=== PATIENT | female | born 1980 | race Two or more races ===

== ENCOUNTER 2021-10-19 20:45 | Emergency (ER) | payer OTHER ==
[~2021-10-19] VITALS: Ht 170.2 cm; Wt 136.1 kg
[2021-10-19] MEDS ORDERED: [UNRECOGNIZED DRUG - OTHER] (21:13)
[2021-10-19] MEDS ORDERED: LEVSIN/SL0.125 MG SL (23:48)
[2021-10-19] MEDS ORDERED: PEPCID AC20 MG PO (23:48)
[2021-10-19] MEDS ORDERED: CARAFATE1 GM PO (23:48)
== END 2021-10-20 00:14 | disposition home or self-care (01) ==
LOC: ER 20:45
DX: K29.60 Other gastritis without bleeding (principal)

== ENCOUNTER 2021-12-17 18:38 | Emergency (ER) | payer OTHER ==
[~2021-12-17] VITALS: Ht 170.2 cm; Wt 131.5 kg
[~2021-12-17 18:38] MED LIST: CARAFATE1 GM PO; LEVSIN/SL0.125 MG SL; PEPCID AC20 MG PO; [UNRECOGNIZED DRUG - OTHER]
[2021-12-17] MEDS ORDERED: EFFEXOR XR150 MG PO (18:55)
[2021-12-17] MEDS ORDERED: CLONAZEPAM0.5 MG PO (18:55)
[2021-12-17] MEDS ORDERED: DICY20TA PO (21:22)
[2021-12-17] MEDS ORDERED: PEPCID AC20 MG PO (21:22)
== END 2021-12-17 21:40 | disposition home or self-care (01) ==
LOC: ER 18:38
DX: K80.20 Calculus of gallbladder without cholecystitis without obstruction (principal); R10.11 Right upper quadrant pain

== ENCOUNTER 2024-06-09 07:29 | Outpatient (CLI) | payer OTHER ==
[~2024-06-09 07:29] MED LIST changes: +CLONAZEPAM0.5 MG PO; +DICY20TA PO; +EFFEXOR XR150 MG PO
== END 2024-06-09 07:35 | disposition home or self-care (01) ==
LOC: NUCLEAR 07:29
PROVIDERS: ATTEND Internal Medicine
DX: I20.9 Angina pectoris, unspecified (principal)

== ENCOUNTER 2024-07-23 06:15 | Day surgery (SDC) | payer OTHER ==
[2024-07-21 10:24] LABS: PH,URINE 5.5 (5.0-8.0); URINE APPEARANCE Clear; URINE BILIRRUBIN Negative (NEGATIVE); URINE BLOOD Negative; URINE COLOR Yellow; URINE GLUCOSE Negative (NEGATIVE); URINE KETONE Trace (NEGATIVE); URINE LEUKOCYTE Negative; URINE NITRATE Negative; URINE PROTEIN Negative (NEGATIVE)
[2024-07-21 10:29] LABS: URINE BACTERIA 976.3 uL (0.0-1933); URINE CAST 1.37 uL (0.0-1.40); URINE EPITHELIAL CELLS 38.1 uL (0.0-38.8); URINE WBC 5.2 uL (0.0-23.2)
[~2024-07-23] VITALS: Ht 170.2 cm; Wt 141.1 kg
[~2024-07-23 06:15] MED LIST changes: +COZAAR100 MG PO; +CYMBALTA60 MG PO
[2024-07-23] MEDS ORDERED: MORGIDOX100 MG PO (11:45)
[2024-07-23] MEDS ORDERED: IBU600 MG PO (11:45)
[2024-07-23] MEDS ORDERED: ONDANSETRON HCL 2 MG/ML VIAL ONE (12:52)
== END 2024-07-23 16:20 | disposition home or self-care (01) ==
LOC: CIR.AMB 06:15
PROVIDERS: ATTEND Obstetrics & Gynecology
DX: D06.0 Carcinoma in situ of endocervix (principal); R87.810 Cervical high risk human papillomavirus (HPV) DNA test positive; I10 Essential (primary) hypertension; E16.2 Hypoglycemia, unspecified; Z91.02 Food additives allergy status

== ENCOUNTER 2024-09-18 07:15 | Inpatient (IN) | payer OTHER ==
[~2024-09-18] VITALS: Ht 170.2 cm; Wt 166.0 kg
[~2024-09-18 07:15] MED LIST changes: +IBU600 MG PO; +MORGIDOX100 MG PO
[2024-09-18 08:55] LABS: URINE BACTERIA 2637.1 uL (0.0-1933); URINE EPITHELIAL CELLS 68.7 uL (0.0-38.8); URINE RBC 30.5 uL (0.0-20.8); URINE WBC 9.4 uL (0.0-23.2)
[2024-09-18 08:59] LABS: PH,URINE 5.5 (5.0-8.0); URINE APPEARANCE Cloudy; URINE BILIRRUBIN Negative (NEGATIVE); URINE BLOOD Moderate; URINE COLOR Yellow; URINE GLUCOSE Negative (NEGATIVE); URINE KETONE Negative (NEGATIVE); URINE LEUKOCYTE Negative; URINE NITRATE Negative; URINE PROTEIN Negative (NEGATIVE); URINE UROBILINOGEN 0.2 E.U./dl
[2024-09-18 09:13] VITALS: BP 128/87
[2024-09-18 09:13] LABS: HEMATOCRIT 46.8 % (36.0-45.00); HEMOGLOBIN 15.9 g/dL (12.0-15.00); MEAN CELL VOLUME 89.6 fL (80.00-100.00); MEAN CORPUSCULAR HEMOGLOBIN 30.4 pg (27.00-32.0); PLATELET COUNT 207 K/uL (150-450); RED BLOOD COUNT 5.22 M/uL (4.00-6.00); RED CELL DISTRIBUTION WIDTH 15.5 % (11.5-14.5)
[2024-09-18 09:25] LABS: PARTIAL THROMBOPLASTIN TIME 27.4 SECONDS (22.0-34.0); PROTHROMBIN TIME 10.9 SECONDS (9.0-11.5)
[2024-09-18 10:05] LABS: ALBUMIN 3.6 gm/dL (3.4-5.0); BILIRUBIN TOTAL 0.33 mg/dL (0.3-1.2); CALCIUM 9.8 mg/dL (8.5-10.1); CREATININE SERUM 0.98 mg/dL (0.55-1.02); GFR 61.1; GLOBULINA 3.7 G/DL (2.4-3.5); POTASSIUM 4.31 mEq/L (3.5-5.1); TOTAL PROTEIN 7.3 gm/dL (6.4-8.2)
[2024-09-18 10:20] LABS: URINE CAST 0.15 uL (0.0-1.40)
[2024-09-24] MEDS ORDERED: POVIDONE-IODINE 118 ML BOTT TOP ONE (10:30)
[2024-09-24] MEDS ORDERED: METRONIDAZOLE/SODIUM CHLORIDE 500 MG/100 ML PIGGYBACK IV ONE (10:30)
[2024-09-24] MEDS ORDERED: CEFOXITIN SODIUM 2,000 MG VIAL IV ONE (10:30)
[2024-09-24] MEDS ORDERED: SUGAMMADEX SODIUM 200 MG/2 ML VIAL IV ONE (12:45)
[2024-09-24] MEDS ORDERED: KETOROLAC TROMETHAMINE 30 MG VIAL IV PRN (13:45)
[2024-09-24] MEDS ORDERED: RINGERS SOLUTION,LACTATED 1,000 ML IV SCH (13:45)
[2024-09-24] MEDS ORDERED: MORPHINE SULFATE 4 MG/ML VIAL IV ONE ×2 (13:50→14:50)
[2024-09-24] MEDS ORDERED: CEFOXITIN SODIUM 2,000 MG in DEXTROSE 5 % IN WATER 100 ML IV SCH (14:00)
[2024-09-24] MEDS ORDERED: KETOROLAC TROMETHAMINE 30 MG VIAL IV ONE ×2 (15:20→20:24)
[2024-09-24 16:37] LABS: ABG PH 7.314 (7.35-7.45); ABG PO2 97.9 mmHg (80-100); ABG pCO2 46.6 mmHg (35-45); BASE EXCESS -3.3 mmol/l; BICARBONATE 23.1 mmol/l (23-25); SaO2 96.7 %; Tco2 24.6 mmol/l
[2024-09-24 16:41] LABS: allen test SATISFACTORY; o2 31 %; puncture site RADIAL LEFT
[2024-09-24] MEDS ORDERED: METRONIDAZOLE/SODIUM CHLORIDE 100 ML IV SCH (17:00)
[2024-09-24 17:33] LABS: HEMATOCRIT 45.7 % (36.0-45.00); HEMOGLOBIN 15.2 g/dL (12.0-15.00); MEAN CELL VOLUME 90.7 fL (80.00-100.00); MEAN CORPUSCULAR HEMOGLOBIN 30.2 pg (27.00-32.0); MEAN CORPUSCULAR HGB CONC 33.3 g/dl (32.0-36.0); PLATELET COUNT 217 K/uL (150-450); RED BLOOD COUNT 5.04 M/uL (4.00-6.00); RED CELL DISTRIBUTION WIDTH 15.4 % (11.5-14.5)
[2024-09-24] MEDS ORDERED: AMLODIPINE BESYLATE 5 MG TABLET PO NR (18:00)
[2024-09-24] MEDS ORDERED: SIMETHICONE 125 MG CAPSULE PO SCH (18:00)
[2024-09-24] MEDS ORDERED: FAMOTIDINE/PF 20 MG/2 ML VIAL IV SCH (21:00)
[2024-09-25] VITALS (7 sets, daily range): BP systolic 119–161; BP diastolic 73–85; O2SAT 97–100
[2024-09-25 06:12] LABS: ABG PH 7.349 (7.35-7.45); ABG PO2 87.8 mmHg (80-100); ABG pCO2 48.6 mmHg (35-45); BASE EXCESS -0.1 mmol/l; BICARBONATE 26.2 mmol/l (23-25); SaO2 96.1 %; Tco2 27.7 mmol/l
[2024-09-25 06:14] LABS: allen test SATISFACTORY; o2 31 %; puncture site RADIAL RIGHT
[2024-09-25] MEDS ORDERED: KETOROLAC TROMETHAMINE 30 MG VIAL IV PRN (08:45)
[2024-09-25] MEDS ORDERED: NAPROXEN 500 MG TABLET PO PRN (08:45)
[2024-09-25] MEDS ORDERED: KETOROLAC TROMETHAMINE 10 MG TABLET PO PRN (08:45)
[2024-09-25] MEDS ORDERED: ENOXAPARIN SODIUM 40 MG/0.4 ML SYRINGE SUBCUTANEO SCH (09:00)
[2024-09-25] MEDS ORDERED: Duloxetine HCl 60 MG CAPSULE.DR PO SCH (09:00)
[2024-09-25] MEDS ORDERED: LOSARTAN POTASSIUM 100 MG TABLET PO SCH (09:00)
[2024-09-25] MEDS ORDERED: ORPHENADRINE CITRATE 100 MG TABLET PO SCH (09:00)
[2024-09-25 09:58] LABS: ABG pCO2 34.4 mmHg (35-45); BASE EXCESS -0.7 mmol/l; SaO2 98.2 %
[2024-09-25 09:59] LABS: BICARBONATE 22.8 mmol/l (23-25); Tco2 23.9 mmol/l; allen test SATISFACTORY; o2 32 %; puncture site RADIAL LEFT
[2024-09-25] MEDS ORDERED: LEVALBUTEROL HCL 0.63 MG/3 ML SOLUTION IH SCH (12:00)
[2024-09-25] MEDS ORDERED: MORPHINE SULFATE 2 MG/ML SYRINGE IV ONE (15:54)
[2024-09-25] MEDS ORDERED: AMLODIPINE BESYLATE 5 MG TABLET PO SCH (17:00)
[2024-09-25] MEDS ORDERED: CLONAZEPAM 0.5 MG TABLET PO SCH (21:00)
[2024-09-26 02:15] VITALS: BP 140/77
[2024-09-26 08:00] VITALS: BP 134/80; O2SAT 97
[2024-09-26 16:01] VITALS: BP 125/80
[2024-09-26 20:00] VITALS: BP 117/76
[2024-09-27 00:56] VITALS: BP 125/66
[2024-09-27 08:00] VITALS: BP 128/84
[2024-09-27] MEDS ORDERED: NAPR500T14 PO (10:59)
[2024-09-27] MEDS ORDERED: Tylenol #3 PO (10:59)
[2024-09-27] MEDS ORDERED: CLONAZEPAM 0.5 MG TABLET PO STA (11:04)
== END 2024-09-27 15:34 | disposition home or self-care (01) | DRG 739 ==
LOC: O/R 09-24 06:36 → SURH 09-24 07:00 → OB/GYN 09-24 16:08 → O/R 09-24 16:39 → ICU 09-25 01:10 → OB/GYN 09-25 21:27
PROVIDERS: Internal Medicine; ADMIT Obstetrics & Gynecology; ATTEND Obstetrics & Gynecology
PROC: 0UT90ZZ Resection of Uterus, Open Approach (ICD-10-PCS; 2024-09-24)
PROC: 0UT70ZZ Resection of Bilateral Fallopian Tubes, Open Approach (ICD-10-PCS; 2024-09-24)
PROC: 0TJB8ZZ Inspection of Bladder, Via Natural or Artificial Opening Endoscopic (ICD-10-PCS; 2024-09-24)
PROC: 4A033R1 Measurement of Arterial Saturation, Peripheral, Percutaneous Approach (ICD-10-PCS; 2024-09-24)
PROC: 5A09457 Assistance with Respiratory Ventilation, 24-96 Consecutive Hours, Continuous Positive Airway Pressure (ICD-10-PCS; 2024-09-24)
PROC: 0UT20ZZ Resection of Bilateral Ovaries, Open Approach (ICD-10-PCS; principal; 2024-09-24 07:00)
PROC: 3E0F7GC Introduction of Other Therapeutic Substance into Respiratory Tract, Via Natural or Artificial Opening (ICD-10-PCS; 2024-09-25)
DX: D06.0 Carcinoma in situ of endocervix (principal); J95.821 Acute postprocedural respiratory failure; D06.1 Carcinoma in situ of exocervix; D06.7 Carcinoma in situ of other parts of cervix; D25.1 Intramural leiomyoma of uterus; D25.0 Submucous leiomyoma of uterus; N81.11 Cystocele, midline; N84.1 Polyp of cervix uteri; N84.0 Polyp of corpus uteri; N80.03 Adenomyosis of the uterus; Z20.822 Contact with and (suspected) exposure to COVID-19

== ENCOUNTER 2024-09-30 16:15 | Inpatient (IN) | payer OTHER ==
[~2024-09-30] VITALS: Ht 172.7 cm; Wt 161.9 kg
[~2024-09-30 16:15] MED LIST changes: +NAPR500T14 PO; +Tylenol #3 PO
[2024-09-30] MEDS ORDERED: MEPERIDINE HCL/PF 50 MG/ML VIAL IM PRN (16:45)
[2024-09-30] MEDS ORDERED: PROMETHAZINE HCL 25 MG/ML AMPUL IM PRN (16:45)
[2024-09-30] MEDS ORDERED: RINGERS SOLUTION,LACTATED 1,000 ML IV SCH (17:00)
[2024-09-30] MEDS ORDERED: ACETAMINOPHEN 500 MG GEL..CAP PO ONE (17:00)
[2024-09-30] MEDS ORDERED: CLONAZEPAM 1 MG TABLET PO SCH ×2 (17:00→21:00)
[2024-09-30 17:33] LABS: HEMATOCRIT 42.3 % (36.0-45.00); HEMOGLOBIN 14.2 g/dL (12.0-15.00); MEAN CELL VOLUME 91.4 fL (80.00-100.00); MEAN CORPUSCULAR HEMOGLOBIN 30.7 pg (27.00-32.0); MEAN CORPUSCULAR HGB CONC 33.5 g/dl (32.0-36.0); PLATELET COUNT 287 K/uL (150-450); RED BLOOD COUNT 4.62 M/uL (4.00-6.00)
[2024-09-30 17:38] LABS: PH,URINE 5.5 (5.0-8.0); URINE APPEARANCE Turbid; URINE BILIRRUBIN Negative (NEGATIVE); URINE BLOOD Large; URINE COLOR Dark Yellow; URINE GLUCOSE Negative (NEGATIVE); URINE KETONE Trace (NEGATIVE); URINE LEUKOCYTE Small; URINE NITRATE Negative; URINE PROTEIN Trace (NEGATIVE)
[2024-09-30 17:41] VITALS: BP 145/85
[2024-09-30 17:42] LABS: URINE BACTERIA 7698.5 uL (0.0-1933); URINE RBC 59.5 uL (0.0-20.8); URINE WBC 29.6 uL (0.0-23.2)
[2024-09-30] MEDS ORDERED: PIPERACILLIN/TAZOBACTAM SODIUM 3.375 GM in 0.9 % SODIUM CHLORIDE 100 ML IV SCH (18:00)
[2024-09-30 18:01] LABS: URINE CAST 0.61 uL (0.0-1.40); URINE EPITHELIAL CELLS > 201.7 uL (0.0-38.8)
[2024-09-30 18:05] LABS: ALBUMIN 3.3 gm/dL (3.4-5.0); BILIRUBIN TOTAL 0.52 mg/dL (0.3-1.2); CALCIUM 9.6 mg/dL (8.5-10.1); CREATININE SERUM 1.1 mg/dL (0.55-1.02); GFR 53.47; GLOBULINA 4.6 G/DL (2.4-3.5); POTASSIUM 4.22 mEq/L (3.5-5.1); TOTAL PROTEIN 7.9 gm/dL (6.4-8.2)
[2024-09-30 19:17] VITALS: BP 115/63
[2024-10-01] VITALS: BP 112/73
[2024-10-01 08:00] VITALS: BP 119/61
[2024-10-01] MEDS ORDERED: Duloxetine HCl 60 MG CAPSULE.DR PO SCH (09:00)
[2024-10-01] MEDS ORDERED: LOSARTAN POTASSIUM 100 MG TABLET PO SCH (09:00)
[2024-10-01 16:00] VITALS: BP 127/77
[2024-10-01] MEDS ORDERED: Daptomycin 350 MG/VIAL VIAL IV SCH (17:00)
[2024-10-02 00:49] VITALS: BP 130/78; O2SAT 98
[2024-10-02] MEDS ORDERED: ACETAMINOPHEN 500 MG GEL..CAP PO ONE (02:30)
[2024-10-02 08:00] LABS: HEMATOCRIT 37.5 % (36.0-45.00); HEMOGLOBIN 12.6 g/dL (12.0-15.00); MEAN CELL VOLUME 90.3 fL (80.00-100.00); MEAN CORPUSCULAR HEMOGLOBIN 30.4 pg (27.00-32.0); MEAN CORPUSCULAR HGB CONC 33.7 g/dl (32.0-36.0); PLATELET COUNT 284 K/uL (150-450); RED BLOOD COUNT 4.15 M/uL (4.00-6.00); RED CELL DISTRIBUTION WIDTH 14.7 % (11.5-14.5)
[2024-10-02 08:20] VITALS: BP 125/72
[2024-10-02 08:58] LABS: ALBUMIN 2.7 gm/dL (3.4-5.0); BILIRUBIN TOTAL 0.6 mg/dL (0.3-1.2); CALCIUM 8.8 mg/dL (8.5-10.1); CREATININE SERUM 0.98 mg/dL (0.55-1.02); GFR 61.1; GLOBULINA 4.1 G/DL (2.4-3.5); POTASSIUM 4.3 mEq/L (3.5-5.1); TOTAL PROTEIN 6.8 gm/dL (6.4-8.2)
[2024-10-02 16:00] VITALS: BP 129/68
[2024-10-02] MEDS ORDERED: ACETAMINOPHEN 500 MG GEL..CAP PO PRN (17:30)
[2024-10-03 00:55] VITALS: BP 145/74
[2024-10-03 08:26] VITALS: BP 133/62
[2024-10-03] MEDS ORDERED: CLONAZEPAM 0.5 MG TABLET PO NR (11:50)
[2024-10-03 15:55] VITALS: BP 137/77
[2024-10-04 01:29] VITALS: BP 96/63
[2024-10-04 08:00] VITALS: BP 137/84
[2024-10-04] MEDS ORDERED: CLONAZEPAM 0.5 MG TABLET PO SCH (09:00)
[2024-10-04 12:17] LABS: HEMATOCRIT 39.5 % (36.0-45.00); HEMOGLOBIN 13.4 g/dL (12.0-15.00); MEAN CELL VOLUME 89.8 fL (80.00-100.00); MEAN CORPUSCULAR HEMOGLOBIN 30.5 pg (27.00-32.0); MEAN CORPUSCULAR HGB CONC 33.9 g/dl (32.0-36.0); PLATELET COUNT 341 K/uL (150-450); RED BLOOD COUNT 4.39 M/uL (4.00-6.00); RED CELL DISTRIBUTION WIDTH 14.5 % (11.5-14.5)
[2024-10-04 12:59] LABS: ALBUMIN 2.7 gm/dL (3.4-5.0); BILIRUBIN TOTAL 0.37 mg/dL (0.3-1.2); CALCIUM 9.2 mg/dL (8.5-10.1); CREATININE SERUM 1.03 mg/dL (0.55-1.02); GFR 57.69; GLOBULINA 4.2 G/DL (2.4-3.5); POTASSIUM 4.3 mEq/L (3.5-5.1); TOTAL PROTEIN 6.9 gm/dL (6.4-8.2)
[2024-10-04 16:00] VITALS: BP 139/86
[2024-10-04 23:44] VITALS: BP 116/77
[2024-10-05] MEDS ORDERED: PIPERACILLIN/TAZOBACTAM SODIUM 4.5 GM VIAL IV SCH
[2024-10-05 07:34] VITALS: BP 148/87
[2024-10-05 08:03] VITALS: BP 125/75
[2024-10-05 16:58] VITALS: BP 132/75
[2024-10-06 01:13] VITALS: BP 139/85
[2024-10-06 08:01] VITALS: BP 132/78
[2024-10-06 15:37] VITALS: BP 140/83
[2024-10-07 00:33] VITALS: BP 128/82
[2024-10-07 07:48] VITALS: BP 123/62
[2024-10-07 19:21] VITALS: BP 135/75
[2024-10-08 00:43] VITALS: BP 100/56
[2024-10-08 08:18] VITALS: BP 141/63
[2024-10-08 16:42] VITALS: BP 140/80
[2024-10-09] VITALS: BP 131/67
[2024-10-09 07:01] LABS: HEMATOCRIT 40.1 % (36.0-45.00); HEMOGLOBIN 13.1 g/dL (12.0-15.00); MEAN CELL VOLUME 90.8 fL (80.00-100.00); MEAN CORPUSCULAR HEMOGLOBIN 29.7 pg (27.00-32.0); MEAN CORPUSCULAR HGB CONC 32.7 g/dl (32.0-36.0); PLATELET COUNT 380 K/uL (150-450); RED BLOOD COUNT 4.42 M/uL (4.00-6.00); RED CELL DISTRIBUTION WIDTH 14.4 % (11.5-14.5)
[2024-10-09 07:43] LABS: ALBUMIN 2.8 gm/dL (3.4-5.0); BILIRUBIN TOTAL 0.23 mg/dL (0.3-1.2); CALCIUM 9.3 mg/dL (8.5-10.1); CREATININE SERUM 1.08 mg/dL (0.55-1.02); GFR 54.62; GLOBULINA 4.1 G/DL (2.4-3.5); POTASSIUM 4.69 mEq/L (3.5-5.1); TOTAL PROTEIN 6.9 gm/dL (6.4-8.2)
[2024-10-09 08:35] VITALS: BP 140/70
[2024-10-09] MEDS ORDERED: CLOTRIMAZOLE 15 GM TUBE TOP SCH (09:00)
[2024-10-09 16:43] VITALS: BP 128/60
[2024-10-09] MEDS ORDERED: CLONAZEPAM 1 MG TABLET PO SCH (21:00)
[2024-10-10] VITALS: BP 99/55
[2024-10-10 08:28] VITALS: BP 148/84
[2024-10-10] MEDS ORDERED: LOSARTAN POTASSIUM 50 MG TABLET PO SCH (09:00)
[2024-10-10 16:00] VITALS: BP 134/78
[2024-10-10 23:34] VITALS: BP 102/68
[2024-10-11 07:56] VITALS: BP 140/80
[2024-10-11 16:00] VITALS: BP 142/89
[2024-10-12] VITALS: BP 130/81
[2024-10-12 07:46] VITALS: BP 138/88
[2024-10-12 16:00] VITALS: BP 111/66
[2024-10-13] VITALS: BP 134/80
[2024-10-13] MEDS ORDERED: ACETAMINOPHEN 500 MG GEL..CAP PO PRN (11:15)
[2024-10-13] MEDS ORDERED: CLONAZEPAM 0.5 MG TABLET PO SCH (11:15)
[2024-10-13 12:12] VITALS: BP 145/82
[2024-10-13 16:00] VITALS: BP 139/79
[2024-10-14 00:56] VITALS: BP 137/90
[2024-10-14 09:00] VITALS: BP 113/70
[2024-10-14 16:00] VITALS: BP 128/65
[2024-10-15 01:12] VITALS: BP 137/70
[2024-10-15 06:52] LABS: HEMATOCRIT 40.6 % (36.0-45.00); HEMOGLOBIN 13.6 g/dL (12.0-15.00); MEAN CELL VOLUME 90.3 fL (80.00-100.00); MEAN CORPUSCULAR HEMOGLOBIN 30.1 pg (27.00-32.0); MEAN CORPUSCULAR HGB CONC 33.4 g/dl (32.0-36.0); PLATELET COUNT 295 K/uL (150-450); RED CELL DISTRIBUTION WIDTH 14.5 % (11.5-14.5)
[2024-10-15 07:27] LABS: ALBUMIN 2.9 gm/dL (3.4-5.0); BILIRUBIN TOTAL 0.27 mg/dL (0.3-1.2); CALCIUM 9.7 mg/dL (8.5-10.1); CREATININE SERUM 1.05 mg/dL (0.55-1.02); GFR 56.42; GLOBULINA 4.1 G/DL (2.4-3.5); POTASSIUM 4.38 mEq/L (3.5-5.1)
[2024-10-15 09:00] VITALS: BP 135/83
[2024-10-15 16:29] VITALS: BP 138/95
[2024-10-15] MEDS ORDERED: LORATADINE 10 MG TABLET PO SCH (17:00)
[2024-10-16 01:15] VITALS: BP 114/71
[2024-10-16 09:00] VITALS: BP 136/71
[2024-10-16 16:07] VITALS: BP 132/62
[2024-10-17] VITALS: BP 126/60
[2024-10-17 10:22] VITALS: BP 126/80
[2024-10-17 16:53] VITALS: BP 111/70
[2024-10-17] MEDS ORDERED: CLONAZEPAM 1 MG TABLET PO SCH (23:45)
[2024-10-18 01:00] VITALS: BP 114/71
[2024-10-18 08:00] VITALS: BP 154/84
[2024-10-18 16:32] VITALS: BP 111/70
[2024-10-19] VITALS: BP 137/76
[2024-10-19 08:28] VITALS: BP 134/82
[2024-10-19 16:34] VITALS: BP 115/70
[2024-10-20 01:00] VITALS: BP 140/89
[2024-10-20 08:00] VITALS: BP 131/83
[2024-10-20 17:33] VITALS: BP 140/89
[2024-10-21 00:51] VITALS: BP 111/73
[2024-10-21 08:41] VITALS: BP 128/74
[2024-10-21] MEDS ORDERED: ACETAMINOPHEN 500 MG GEL..CAP PO PRN (16:15)
[2024-10-21 16:17] VITALS: BP 163/72
[2024-10-22 02:32] VITALS: BP 135/80
[2024-10-22 06:26] LABS: HEMATOCRIT 40.5 % (36.0-45.00); HEMOGLOBIN 13.2 g/dL (12.0-15.00); MEAN CELL VOLUME 90.7 fL (80.00-100.00); MEAN CORPUSCULAR HEMOGLOBIN 29.5 pg (27.00-32.0); MEAN CORPUSCULAR HGB CONC 32.6 g/dl (32.0-36.0); PLATELET COUNT 180 K/uL (150-450); RED BLOOD COUNT 4.46 M/uL (4.00-6.00); RED CELL DISTRIBUTION WIDTH 14.9 % (11.5-14.5)
[2024-10-22 06:49] LABS: ERYTHROCYTE SEDIMENTATION RATE 38 mm/hr
[2024-10-22 07:08] LABS: BILIRUBIN TOTAL 0.39 mg/dL (0.3-1.2); CALCIUM 9.6 mg/dL (8.5-10.1); CREATININE SERUM 1.22 mg/dL (0.55-1.02); GFR 47.45; GLOBULINA 3.9 G/DL (2.4-3.5); POTASSIUM 4.5 mEq/L (3.5-5.1); TOTAL PROTEIN 6.9 gm/dL (6.4-8.2)
[2024-10-22 07:12] LABS: C-REACTIVE PROTEIN 0.88 MG/DL (0.00-0.29)
[2024-10-22 08:33] VITALS: BP 139/77
[2024-10-22 13:47] LABS: T4 FREE 0.9 NG/ML (0.76-1.46); TSH 2.45 uIU/mL (0.358-3.74)
[2024-10-22 16:39] VITALS: BP 112/72
[2024-10-22] MEDS ORDERED: hydrOXYzine PAMOATE 50 MG CAPSULE PO SCH (21:00)
[2024-10-23 01:35] VITALS: BP 120/70
[2024-10-23 07:04] LABS: HEMATOCRIT 39.8 % (36.0-45.00); HEMOGLOBIN 13.6 g/dL (12.0-15.00); MEAN CELL VOLUME 89.1 fL (80.00-100.00); MEAN CORPUSCULAR HEMOGLOBIN 30.4 pg (27.00-32.0); MEAN CORPUSCULAR HGB CONC 34.1 g/dl (32.0-36.0); PLATELET COUNT 170 K/uL (150-450); RED BLOOD COUNT 4.47 M/uL (4.00-6.00)
[2024-10-23 07:58] LABS: CALCIUM 9.4 mg/dL (8.5-10.1); CREATININE SERUM 1.06 mg/dL (0.55-1.02); GFR 55.81; POTASSIUM 3.93 mEq/L (3.5-5.1)
[2024-10-23 12:39] VITALS: BP 140/80
[2024-10-23 16:00] VITALS: BP 139/77
[2024-10-24 00:50] VITALS: BP 137/81
[2024-10-24 09:00] VITALS: BP 144/66
[2024-10-24 16:00] VITALS: BP 129/82
[2024-10-25 00:28] VITALS: BP 143/83
[2024-10-25 08:00] VITALS: BP 142/87
[2024-10-25 17:00] VITALS: BP 127/78
[2024-10-26 00:39] VITALS: BP 148/79
[2024-10-26 08:00] VITALS: BP 147/80
[2024-10-26] MEDS ORDERED: DIPHENHYDRAMINE HCL 50 MG CAPSULE PO PRN (14:45)
[2024-10-26 15:48] VITALS: BP 134/70
[2024-10-26] MEDS ORDERED: CLONAZEPAM 1 MG TABLET PO SCH (21:00)
[2024-10-27] VITALS: BP 127/87
[2024-10-27 08:18] VITALS: BP 139/80
[2024-10-27 16:02] VITALS: BP 121/72
[2024-10-27] MEDS ORDERED: DIPHENHYDRAMINE HCL 50 MG CAPSULE PO SCH (21:00)
[2024-10-28] VITALS: BP 142/85
[2024-10-28 09:00] VITALS: BP 140/86
[2024-10-28] MEDS ORDERED: ESTROGENS, CONJUGATED 0.625 MG TABLET PO SCH (09:00)
[2024-10-28 18:40] VITALS: BP 146/80
[2024-10-29 01:04] VITALS: BP 133/80
[2024-10-29 08:00] VITALS: BP 150/72
[2024-10-29] MEDS ORDERED: ACETAMINOPHEN 500 MG GEL..CAP PO PRN (15:15)
[2024-10-29 15:54] VITALS: BP 119/65
[2024-10-30 00:27] VITALS: BP 130/84
[2024-10-30 09:32] VITALS: BP 147/83
[2024-10-30 15:34] VITALS: BP 143/83
[2024-10-31 00:56] VITALS: BP 124/74
[2024-10-31 08:00] VITALS: BP 130/79
[2024-10-31 15:51] VITALS: BP 134/82
[2024-11-01 00:07] VITALS: BP 130/80
[2024-11-01 08:00] VITALS: BP 126/74
[2024-11-01] MEDS ORDERED: CLONAZEPAM 0.5 MG TABLET PO SCH (09:00)
[2024-11-01 14:52] VITALS: BP 129/74
[2024-11-01 23:22] VITALS: BP 153/88
[2024-11-02 07:50] VITALS: BP 136/80
== END 2024-11-02 17:32 | disposition home or self-care (01) | DRG 858 ==
LOC: ER 16:17 → OB/GYN 17:23
PROVIDERS: General Practice; Internal Medicine Infectious Disease; Student in an Organized Health Care Education/Training Program; ADMIT Obstetrics & Gynecology; ATTEND Obstetrics & Gynecology
PROC: 0JB80ZZ Excision of Abdomen Subcutaneous Tissue and Fascia, Open Approach (ICD-10-PCS; principal; 2024-10-01)
PROC: BW21ZZZ Computerized Tomography (CT Scan) of Abdomen and Pelvis (ICD-10-PCS; 2024-10-01)
PROC: 8E0ZXY6 Isolation (ICD-10-PCS; 2024-10-02)
PROC: BW40ZZZ Ultrasonography of Abdomen (ICD-10-PCS; 2024-10-12)
PROC: 0JB80ZZ Excision of Abdomen Subcutaneous Tissue and Fascia, Open Approach (ICD-10-PCS; 2024-10-14)
PROC: 0JB80ZZ Excision of Abdomen Subcutaneous Tissue and Fascia, Open Approach (ICD-10-PCS; 2024-10-21)
DX: T81.41XA Infection following a procedure, superficial incisional surgical site, initial encounter (principal); Y65.8 Other specified misadventures during surgical and medical care; G89.18 Other acute postprocedural pain; I10 Essential (primary) hypertension; E66.01 Morbid (severe) obesity due to excess calories; N81.11 Cystocele, midline; R10.2 Pelvic and perineal pain; F43.20 Adjustment disorder, unspecified; F43.23 Adjustment disorder with mixed anxiety and depressed mood; Z20.822 Contact with and (suspected) exposure to COVID-19; B96.5 Pseudomonas (aeruginosa) (mallei) (pseudomallei) as the cause of diseases classified elsewhere; B96.4 Proteus (mirabilis) (morganii) as the cause of diseases classified elsewhere; B95.2 Enterococcus as the cause of diseases classified elsewhere; B96.89 Other specified bacterial agents as the cause of diseases classified elsewhere; B95.7 Other staphylococcus as the cause of diseases classified elsewhere